=== PATIENT | male | born 1955 | race Caucasian/White ===

== ENCOUNTER 2017-12-10 17:42 | Emergency (ER) | payer BC ==
[2017-12-10 18:02] VITALS: BP 140/86
--- NOTE | 2017-12-10 18:14 | EDM.PDOC ---
ED HPI GENERAL MEDICAL PROBLEM - General Chief Complaint: Laceration Stated Complaint: laceration Time Seen by Provider: 12/10/17 17:50 Source of Information: Reports: Patient History Limitations: Reports: No Limitations - History of Present Illness INITIAL COMMENTS - FREE TEXT/NARRATIVE: Patient is a 62-year-old gentleman who is seen today with laceration of left index finger patient was placing sandy in his house when the hammer slipped and hit his finger causing a see form laceration of the distal end of the left index finger Onset: Sudden Duration: Minutes:, Other (New laceration) Location: Reports: Upper Extremity, Left Quality: Reports: Ache Severity: Moderate Improves with: Reports: Heat Therapy Worsens with: Reports: Other Context: Reports: Activity Associated Symptoms: Reports: No Other Symptoms Treatments 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: Reports: Acetaminophen - Related Data Allergies Allergy/AdvReac Type Severity Reaction Status Date / Time fexofenadine Allergy Headache Verified 12/10/17 17:50 Sulfa (Sulfonamide Allergy Cannot Verified 12/10/17 17:50 Antibiotics) Remember Home Meds: Home Meds Aspirin [Halfprin] 81 mg PO BRK 05/08/16 [History] Calcium Carbonate [Tums Extra Strength] 1,500 mg PO DAILY 05/08/16 [History] Chlorthalidone 25 mg PO DAILY 05/08/16 [History] Gluc 2KCl/Chondr/Mack Hy/Hy Ac [Glucosamine & Chondroitin Cap] 1 tab PO BID 05/17 [History] Levothyroxine Sodium [Synthroid] 137 mcg PO DAILY 05/08/16 [History] Losartan Potassium [Cozaar] 100 mg PO DAILY 05/08/16 [History] Multivitamin W/Iron, Minerals [Compete] 1 tab PO DAILY 05/08/16 [History] Pregabalin [Lyrica] 150 mg PO DAILY 05/08/16 [History] Sildenafil Citrate [Sildenafil] 50 - 100 mg PO ASDIRECTED PRN 05/08/16 [History] Testosterone [Androgel] 4 pump TD DAILY 05/08/16 [History] Ubidecarenone [Co Q-10] 100 mg PO BID 05/08/16 [History] atorvaSTATin Calcium [Atorvastatin Calcium] 40 mg PO BEDTIME 05/08/16 [History] DULoxetine [Cymbalta] 60 mg PO DAILY 12/10/17 [History] Famotidine [Famotidine] 20 mg PO BID 12/10/17 [History] Past Medical History - Past Health History Medical/Surgical History: Denies Medical/Surgical History Cardiovascular History: Reports: High Cholesterol, Hypertension Gastrointestinal History: Reports: Colon Polyp, Diverticulosis, Other (See Below ) Other Gastrointestinal History: umbilical hernia Genitourinary History: Reports: BPH, Other (See Below) Other Genitourinary History: Erectile dysfunction. Musculoskeletal History: Reports: Osteoarthritis Psychiatric History: Reports: Anxiety, Depression Endocrine/Metabolic History: Reports: Hypothyroidism, Other (See Below) Other Endocrine/Metabolic History: hyperglycemia - Past Surgical History GI Surgical History: Reports: Colonoscopy, Hernia Repair/Other Musculoskeletal Surgical History: Reports: Other (See Below) Social & Family History - Tobacco Use Smoking Status *Q: Former Smoker Years of Tobacco use: 7 Packs/Tins Daily: 0.5 Used Tobacco, but Quit: Yes Month Tobacco Last Used: Quit many years ago - Alcohol Use Days Per Week of Alcohol Use: 7 Number of Drinks Per Day: 1 Total Drinks Per Week: 7 - Recreational Drug Use Recreational Drug Use: No ED ROS GENERAL - Review of Systems Review Of Systems: See Below Constitutional: Reports: No Symptoms HEENT: Reports: No Symptoms Respiratory: Reports: No Symptoms Cardiovascular: Reports: No Symptoms Endocrine: Reports: No Symptoms GI/Abdominal: Reports: No Symptoms : Reports: No Symptoms Musculoskeletal: Reports: No Symptoms Skin: Reports: No Symptoms ED EXAM, SKIN/RASH Exam: See Below Exam Limited By: No Limitations General Appearance: Alert, WD/WN, No Apparent Distress Ears: Normal External Exam, Normal Canal, Hearing Grossly Normal, Normal TMs Nose: Normal Inspection, Normal Mucosa, No Blood Throat/Mouth: Normal Inspection, Normal Lips, Normal Teeth, Normal Gums, Normal Oropharynx, Normal Voice, No Airway Compromise Head: Atraumatic, Normocephalic Neck: Normal Inspection, Supple, Non-Tender, Full Range of Motion Respiratory/Chest: No Respiratory Distress, Lungs Clear, Normal Breath Sounds, No Accessory Muscle Use, Chest Non-Tender Cardiovascular: Normal Peripheral Pulses, Regular Rate, Rhythm, No Edema, No Gallop, No JVD, No Murmur, No Rub GI/Abdominal: Normal Bowel Sounds, Soft, Non-Tender, No Organomegaly, No Distention, No Abnormal Bruit, No Mass (Male) Exam: No Hernia, Normal Inspection, Normal Prostate, Circumcised Rectal (Males) Exam: Normal Exam, Normal Rectal Tone, Prostate Normal Back Exam: Normal Inspection, Full Range of Motion, NT Extremities: Normal Inspection, Normal Range of Motion, Non-Tender, No Pedal Edema, Normal Capillary Refill Neurological: Alert, Oriented, CN II-XII Intact, Normal Cognition, Normal Gait, Normal Reflexes, No Motor/Sensory Deficits Psychiatric: Normal Affect, Normal Mood Skin: Rash (Rash over back and mid chest left arm this appeared to be contact dermatitis) Location, Skin: Upper Extremity, Left (Left index finger laceration about 1-1/2 cm semicircular the area was prepped and draped and closed with sutures) Lymphatic: No Adenopathy ED SKIN PROCEDURES - Laceration/Wound Repair Left Distal Ventral Finger Appearance: Superficial Distal NVT: Neuro & Vascular Intact Local Anesthesia - Lidocaine (Xylocaine): 1% Plain Local Anesthetic Volume: 2cc Skin Prep: Providone-Iodine (Betadine) Exploration/Debridement/Repair: Wound Explored Closed with: Sutures Suture Size: other (5-0 nylon) Suture Type: Nylon Progress/Comments: Area was prepped and draped in the usual standard form after her finger was prepped and draped using 1% Xylocaine we injected the distal tip we will proceeded to close it with 5-0 nylon 4 interrupted sutures were placed patient tolerated well procedure the distal and appear well vascularized suture removals in 10 days Course - Vital Signs Last Recorded V/S: Last Vital Signs Temp 97.6 F 12/10/17 17:45 Pulse 79 12/10/17 18:02 Resp 20 12/10/17 17:45 BP 140/86 12/10/17 18:02 Pulse Ox 96 12/10/17 18:02 Departure - Departure Time of Disposition: 18:17 Disposition: Home, Self-Care 01 Clinical Impression: Broken skin - Discharge Information Instructions: Laceration Care, Adult, [id number] Referrals: Tim Breen PA [Primary Care Provider] -
[2017-12-10] MEDS ORDERED: Bacitracin/Neomycin/Polymyxin B Oint 0.9 GM U/D Packet TOP ONE (18:15)
== END 2017-12-10 19:05 | disposition home or self-care (01) ==
LOC: LL.ED 17:42
DX: S61.211A Laceration without foreign body of left index finger without damage to nail, initial encounter (principal); E78.00 Pure hypercholesterolemia, unspecified; I10 Essential (primary) hypertension; E03.9 Hypothyroidism, unspecified; Z88.2 Allergy status to sulfonamides; Z88.8 Allergy status to other drugs, medicaments and biological substances; Z79.899 Other long term (current) drug therapy; Z87.891 Personal history of nicotine dependence; W27.8XXA Contact with other nonpowered hand tool, initial encounter
CPT/HCPCS: 12001; 99283

== ENCOUNTER 2019-08-25 07:26 | Day surgery (SDC) | payer BC ==
[2019-08-25] MEDS ORDERED: Lactated Ringers 1,000 ML IV SCH (07:30)
[2019-08-25] MEDS ORDERED: Sodium Chloride 0.9% 10 ML Syringe FLUSH PRN (07:30)
[2019-08-25] MEDS ORDERED: Midazolam 1 MG/ML 2 ML SDV ONE ×2 (08:08→08:31)
[2019-08-25] MEDS ORDERED: Propofol 200 MG/20 ML SDV ONE ×2 (08:08→08:31)
--- NOTE | 2019-08-25 08:40 | PCM.PN ---
- General Info Date of Service: 08/25/19 - Review of Systems Systems Review Comment:: 64 y/o male with history of colon polyps here for surveillance colonoscopy. He is medically stable to proceed. He denies any recent changes to his bowel habits. I have discussed the proposed colonoscopy with the patient. He agrees to proceed accepting risks. - Patient Data Vitals - Most Recent: Last Vital Signs Temp 97.9 F 08/25/19 08:04 Pulse 76 08/25/19 08:04 Resp 20 08/25/19 08:04 BP 134/81 08/25/19 08:04 Pulse Ox 98 08/25/19 08:04 Weight - Most Recent: 105.233 kg Med Orders - Current: Current Medications Lactated Ringer's (Ringers, Lactated) 1,000 mls @ 125 mls/hr IV ASDIRECTED PHILLIP Last Admin: 08/25/19 08:18 Dose: 125 mls/hr Sodium Chloride (Saline Flush) 10 ml FLUSH ASDIRECTED PRN PRN Reason: Keep Vein Open Discontinued Medications Midazolam HCl (Versed 1 Mg/Ml) Confirm Administered Dose 2 mg .ROUTE .STK-MED ONE Stop: 08/25/19 08:09 Propofol (Diprivan 20 Ml) Confirm Administered Dose 400 mg .ROUTE .STK-MED ONE Stop: 08/25/19 08:09 - Problem List Review Problem List Initiated/Reviewed/Updated: Yes - My Orders Last 24 Hours: My Active Orders 08/25/19 07:30 Patient Status [ADT] Routine Peripheral IV Care [RC] . DIRECTED Verify Patient Consent Obtain [RC] ASDIRECTED Lactated Ringers [Ringers, Lactated] 1,000 ml IV ASDIRECTED Sodium Chloride 0.9% [Saline Flush] 10 ml FLUSH ASDIRECTED PRN Peripheral IV Insertion Adult [OM.PC] Routine - Assessment Assessment:: history of colon polyps - Plan Plan:: colonoscopy
--- NOTE | 2019-08-25 09:26 | PCM.OPNOTE ---
- General Post-Op/Procedure Note Date of Surgery/Procedure: 08/25/19 Operative Procedure(s): colonoscopy with polypectomy Findings: hepatic flexure and cecal polyps Rare left sided diverticuli Pre Op Diagnosis: history of colon polyps Post-Op Diagnosis: colon polyps Anesthesia Technique: MAC Primary Surgeon: Ceasar Stephenson Pathology: Right colon polyps EBL in mLs: 0 Complications: None Condition: Good
[2019-08-25 10:38] VITALS: BP 133/82; PULSE 62
--- NOTE | 2019-08-25 12:54 | OR ---
Date of Procedure: 08/25/2019 PREOPERATIVE DIAGNOSIS: History of colon polyps. POSTOPERATIVE DIAGNOSIS: Colon polyps. OPERATION PERFORMED: Colonoscopy with polypectomy. INDICATIONS FOR SURGERY: This 64-year-old male has a known history of colon polyps and comes today for surveillance colonoscopy. FINDINGS: At the hepatic flexure, the patient has a cluster of 2 polyps. There is a 12 mm sessile irregularly-shaped soft polyp and adjacent to this an 8 mm flat polyp. In the cecum, the patient has a 3 mm sessile polyp. There are rare scattered diverticula in the left colon without signs of inflammation. DESCRIPTION OF PROCEDURE: The patient was taken to the operating room. He was given intravenous sedation, and with him in the left lateral decubitus position, digital rectal exam was performed showing no rectal masses. The Olympus colonoscope was inserted into the rectum. Retroflexed examination of the rectal canal was performed. The scope was carefully advanced under direct visualization through the entire length of the colon until the cecum was reached. The colon was somewhat tortuous and reaching the cecum was somewhat difficult, but assisted with hand pressure and was able to be eventually safely accomplished. Cecal identity was confirmed by viewing the normal internal cecal anatomy including the appendiceal orifice and ileocecal valve. After examining the cecum, the scope was slowly withdrawn sequentially re-examining the colonic segments. In the cecum, the above-described small polyp was removed with a biopsy forceps and was submitted. At the hepatic flexure, the 2 above-described polyps were removed with a cautery snare and retrieved into a polyp trap and also collected for submission. Examination was continued, and after the entire colon and rectum had been fully examined and with no sign of any complication, the scope was removed, and the patient was taken from the operating room in satisfactory condition. ESTIMATED BLOOD LOSS: 0. COMPLICATIONS: None. PROGNOSIS: Good. YELITZA Stephenson MD /[id number] LIZ
== END 2019-08-25 10:24 | disposition home or self-care (01) ==
LOC: LL.SDS 07:26
PROVIDERS: ATTEND Surgery
DX: Z12.11 Encounter for screening for malignant neoplasm of colon (principal); D12.0 Benign neoplasm of cecum; D12.3 Benign neoplasm of transverse colon; K57.30 Diverticulosis of large intestine without perforation or abscess without bleeding; K63.89 Other specified diseases of intestine; I10 Essential (primary) hypertension; E03.9 Hypothyroidism, unspecified; E78.5 Hyperlipidemia, unspecified; K21.9 Gastro-esophageal reflux disease without esophagitis; F41.9 Anxiety disorder, unspecified; F32.9 Major depressive disorder, single episode, unspecified; M19.90 Unspecified osteoarthritis, unspecified site; N40.0 Benign prostatic hyperplasia without lower urinary tract symptoms; Z88.2 Allergy status to sulfonamides; Z88.8 Allergy status to other drugs, medicaments and biological substances; Z86.010 Personal history of colon polyps; Z87.891 Personal history of nicotine dependence; Z80.0 Family history of malignant neoplasm of digestive organs; Z79.82 Long term (current) use of aspirin; Z79.899 Other long term (current) drug therapy
CPT/HCPCS: J2250; J2704; J7120

== ENCOUNTER 2023-09-10 10:27 | Day surgery (SDC) | payer MEDICARE ==
[~2023-09-10 10:27] MED LIST: Midazolam 1 MG/ML 2 ML SDV ONE; Propofol 200 MG/20 ML SDV ONE
[2023-09-10] MEDS ORDERED: Lactated Ringers 1,000 ML IV SCH (10:45)
[2023-09-10] MEDS ORDERED: Sodium Chloride 0.9% 10 ML Syringe FLUSH PRN (10:45)
[2023-09-10 14:15] VITALS: BP 145/78; PULSE 62
== END 2023-09-10 13:43 | disposition home or self-care (01) ==
LOC: LL.SDS 10:27
PROVIDERS: ATTEND Surgery
DX: Z12.11 Encounter for screening for malignant neoplasm of colon (principal); D12.5 Benign neoplasm of sigmoid colon; K57.30 Diverticulosis of large intestine without perforation or abscess without bleeding; F41.9 Anxiety disorder, unspecified; N40.0 Benign prostatic hyperplasia without lower urinary tract symptoms; F32.A Depression, unspecified; I10 Essential (primary) hypertension; E78.5 Hyperlipidemia, unspecified; E03.9 Hypothyroidism, unspecified; Z79.1 Long term (current) use of non-steroidal anti-inflammatories (NSAID); Z79.899 Other long term (current) drug therapy; Z79.890 Hormone replacement therapy; Z88.2 Allergy status to sulfonamides; Z88.8 Allergy status to other drugs, medicaments and biological substances; Z87.891 Personal history of nicotine dependence
CPT/HCPCS: 45385; J2250; J2704; J7120; 00812

== ENCOUNTER 2025-05-18 07:50 | Day surgery (SDC) | payer MEDICARE ==
[2025-05-18] MEDS ORDERED: Sodium Chloride 0.9% 10 ML Syringe FLUSH PRN (08:00)
[2025-05-18] MEDS ORDERED: Propofol 200 MG/20 ML SDV ONE ×2 (08:19→11:38)
[2025-05-18] MEDS ORDERED: fentaNYL 100 MCG/2 ML SDV ONE (08:19)
[2025-05-18] MEDS: Lactated Ringers 1,000 ML IV SCH (08:21)
[2025-05-18] MEDS ORDERED: Ondansetron 4 MG/2 ML SDV IVPUSH ONE (09:00)
[2025-05-18] MEDS ORDERED: Succinylcholine 200 MG/10 ML MDV IVPUSH ONE (09:00)
[2025-05-18] MEDS ORDERED: Rocuronium 100 MG/10 ML MDV IVPUSH ONE (09:00)
[2025-05-18] MEDS: Bupivacaine 0.5%/EPINEPHrine 1:200,000 30 ML SDV INFILT ONE (09:18)
[2025-05-18 12:09] VITALS: BP 155/80
[2025-05-18 12:17] VITALS: PULSE 61
== END 2025-05-18 13:54 | disposition home or self-care (01) ==
LOC: LL.SDS 07:50
PROVIDERS: ATTEND Surgery
DX: K40.30 Unilateral inguinal hernia, with obstruction, without gangrene, not specified as recurrent (principal); I10 Essential (primary) hypertension; E03.9 Hypothyroidism, unspecified; K21.9 Gastro-esophageal reflux disease without esophagitis; Z88.2 Allergy status to sulfonamides; Z88.5 Allergy status to narcotic agent; Z79.890 Hormone replacement therapy; Z79.899 Other long term (current) drug therapy
CPT/HCPCS: C1781; J0330; J0665; J0690; J2003; J2405; J2704; J3010; J3490; J7120